=== PATIENT | male | born 1995 | race Caucasian/White ===

== ENCOUNTER 2017-01-23 22:58 | Emergency (ER) | payer BC ==
[2017-01-23 23:06] VITALS: RESP 20
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
[2017-01-24 03:35] VITALS: BP 144/71; PULSE 97; TEMP 97
== END 2017-01-24 03:35 | disposition home or self-care (01) ==
LOC: EC 22:58
DX: F90.9 Attention-deficit hyperactivity disorder, unspecified type (principal); R45.87 Impulsiveness; F10.129 Alcohol abuse with intoxication, unspecified; E07.9 Disorder of thyroid, unspecified; Z79.52 Long term (current) use of systemic steroids; Z79.899 Other long term (current) drug therapy
CPT/HCPCS: 80306; 82075; 99284